=== PATIENT | male | born 1955 | race Caucasian/White ===

== ENCOUNTER 2017-03-08 05:38 | Outpatient (CLI) | payer BC, OTHER ==
[~2017-03-08] VITALS: Ht 177.8 cm; Wt 93.0 kg
[2017-03-08] MEDS ORDERED: MULT-517 PO (11:36)
[2017-03-08] MEDS ORDERED: CINN500C2 PO (11:36)
== END 2017-03-08 11:38 ==
LOC: PREOP 05:38
PROVIDERS: ATTEND Surgery
DX: Z01.818 Encounter for other preprocedural examination (principal); K40.91 Unilateral inguinal hernia, without obstruction or gangrene, recurrent

== ENCOUNTER 2017-03-14 05:57 | Day surgery (SDC) | payer BC, OTHER ==
[~2017-03-14] VITALS: Ht 177.8 cm; Wt 93.0 kg
[2017-03-14] VITALS (7 sets, daily range): BP systolic 118–144; BP diastolic 68–91
[~2017-03-14 05:57] MED LIST: CINN500C2 PO; MULT-517 PO
[2017-03-14 06:29] LABS: MEAN PLATELET VOLUME 10.3 FL (7.4-10.4); RED BLOOD COUNT 4.98 10^6/uL (4.35-5.85); RED CELL DISTRIBUTION WIDTH 12.2 % (10.0-14.5); WHITE BLOOD COUNT 5.2 10^3/uL (4.3-11.0)
[2017-03-14] MEDS ORDERED: ceFAZolin 2 GM/50 ML NS 50 ML ONE (06:30)
[2017-03-14] MEDS: LACTATED RINGERS 1,000 ML IV PRN ×3 (06:30→10:48)
[2017-03-14] MEDS ORDERED: MIDAZOLAM 2 MG/2 ML (VERSED) VIAL ONE (06:36)
[2017-03-14] MEDS ORDERED: LACTATED RINGERS 1,000 ML IV ONE ×3 (06:36→10:41)
[2017-03-14] MEDS ORDERED: LIDOCAINE PF 2% 5 ML (XYLOCAINE) VIAL ONE (06:36)
[2017-03-14] MEDS ORDERED: LIDOCAINE JELLY 2% (XYLOCAINE) 5 ML TUBE ONE (06:36)
[2017-03-14] MEDS ORDERED: proPOfol 200 MG/20 ML (DIPRIVAN) VIAL IV ONE (06:36)
[2017-03-14] MEDS ORDERED: ROCURONIUM 50 MG/5 ML (ZEMURON) VIAL IV ONE ×2 (06:36→09:42)
[2017-03-14] MEDS ORDERED: ONDANSETRON 4 MG/2 ML (SDV) Z0FRAN ONE ×3 (06:36→10:49)
[2017-03-14] MEDS ORDERED: fentaNYL INJECTION 100 MCG/2 ML AMP ONE (06:37)
[2017-03-14] MEDS ORDERED: ceFAZolin 2 GM/NS 50 ML IV ONE (06:45)
[2017-03-14] MEDS ORDERED: BUP/EPI 0.25% 1:200,000 (MARCAINE) 10 ML VIAL IJ ONE (07:25)
--- NOTE | 2017-03-14 07:46 | Progress Note-Pre Operative ---
Pre-Operative Progress Note H&P Reviewed The H&P was reviewed, patient examined and no changes noted. Date Seen by Provider: Mar 14, 2017 Time Seen by Provider: 07:41 Date H&P Reviewed: Mar 14, 2017 Time H&P Reviewed: 07:40 Pre-Operative Diagnosis: Recurrent right inguinal hernia MIKE MADRID MD Mar 14, 2017 7:46 am
[2017-03-14] MEDS ORDERED: SEVOFLURANE (ULTANE) 15 ML INHAL SOLN ONE ×4 (08:27→09:53)
[2017-03-14] MEDS ORDERED: ATROPINE INJ 0.4 MG/ML SDV ONE (08:27)
[2017-03-14] MEDS ORDERED: GLYCOPYRROLATE 0.2 MG/ML (ROBINUL) 2 ML VIAL ONE ×2 (09:44→09:48)
[2017-03-14] MEDS ORDERED: NEOSTIGMINE (BLOXIVERZ ) 1 MG/1ML 10 ML VIAL ONE ×2 (09:44→09:48)
--- NOTE | 2017-03-14 09:59 | Operative Report ---
Operative Report Date of Procedure/Surgery Mar 14, 2017 Surgeon (s) MIKE MADRID MD [employer] Operator (s): not applicable Post-Operative Diagnosis same Procedure Performed robotic assisted repair with mesh Description of Procedure Anesthesia Type: General Estimated blood loss (mL): minimal Specimen(s) collected/removed none Description of the Procedure Indication for procedure: This gentleman presented with a symptomatic, recurrent right inguinal hernia. He had undergone open repair with the mesh plug a few years ago. He was offered minimally invasive repair with robotic assistance and mesh reinforcement. Informed consent was obtained after reviewing the operative details and complications of hematoma, infection of the mesh and the risk of further recurrence. Description of the procedure: He was placed supine on the operative table and general anesthesia induced using an endotracheal tube. A gram of Ancef was administered intravenously as prophylaxis against wound infection. Sequential compression devices were placed around his legs, to minimize the risk of venous thrombosis. A Taylor catheter was placed to decompress the bladder during surgery. It was removed at the end of the operation. Abdomen was prepared and draped in the usual sterile manner. Pneumoperitoneum was established using a Veress needle introduced over the supra-umbilical region after making a 2 cm incision. Intra-abdominal pressure was maintained at 15 mmHg. A 12 mm trocar was placed and anatomy visualized using the high definition, 3-dimensional laparoscope associated with Putney system. A medial recurrence was confirmed on the right side. There was no hernia on the contralateral side. Under direct view, I placed an 8 mm trocar over each side of the abdomen and the patient was placed in steep Trendelenburg position, to displace loops of bowel out of the pelvis. The robotic system was then docked in place. Peritoneum was incised laterally continuing across the median umbilical ligament , entering the pre-peritoneal space. Extraperitoneal fat was contained within the recurrent hernia and reduced. Bleeding during this process was controlled using bipolar artery and clips. The defect measured 2 cm in diameter and was approximated using a 2-0 V-LOC suture with the robotic assistance. A large polypropylene mesh measuring 10 x 16 cm, pre-made to fit into the preperitoneal space was used for reinforcement. It was secured to Lkaus's ligament and the lateral abdominal muscles with 2-0 Vicryl sutures using robotic assistance. Peritoneum was then reconstituted using the same suture material. Hemostasis was satisfactory and the operation concluded. The fascia over the supraumbilical incision was closed using #1 Vicryl. Skin incisions were closed using 4-0 Vicryl, in a subcuticular fashion. 0.25 percent Marcaine with epinephrine was infiltrated along the incisions, both preemptively and at the conclusion of the operation. He tolerated the procedure well, was extubated in the operating room and taken to the recovery room in a stable condition. Findings of the Procedure see the operative report Allergies and Home Medications Allergies Coded Allergies: No Known Drug Allergies (Unverified , 03/08/17) Home Medications Cinnamon Bark 500 Mg Capsule, 500 MG PO DAILY, (Reported) Multivitamin 1 Each Tablet, 1 EACH PO DAILY, (Reported) MIKE MADRID MD Mar 14, 2017 9:59 am
[2017-03-14] MEDS ORDERED: HYDR-3820 PO (10:00)
--- NOTE | 2017-03-14 10:00 | Discharge Inst-Simple/Standard ---
Discharge Inst-Standard Discharge Medications New, Converted or Re-Newed RX: RX on Chart Patient Instructions/Follow Up Plan of Care/Instructions/FU: Band-Aids off in 48 hours. Follow-up in a month. Activity as Tolerated: No Goal: no lifting over 20 pounds Discharge Diet: No Restrictions MIKE MADRID MD Mar 14, 2017 10:00 am
[2017-03-14] MEDS ORDERED: morphine INJ 10 MG/ML 1ML (SYR OR VIAL) IVP PRN (10:30)
[2017-03-14] MEDS ORDERED: MEPERIDINE (DEMEROL) INJ 50 MG/ML IVP PRN (10:30)
[2017-03-14] MEDS: ONDANSETRON 4 MG/2 ML (SDV) Z0FRAN IVP PRN ×2 (10:45→10:55)
[2017-03-14] MEDS ORDERED: SCOPOLAMINE 1.5 MG (TRANSDERM-SCOP) PATCH ONE (11:16)
[2017-03-14] MEDS ORDERED: PROMETHAZINE INJ 25 MG/ML (PHENERGAN) AMP ONE (11:21)
[2017-03-14] MEDS ORDERED: PROMETHAZINE INJ 25 MG/ML (PHENERGAN) AMP IVP PRN (11:30)
[2017-03-14] MEDS ORDERED: SCOPOLAMINE 1.5 MG (TRANSDERM-SCOP) PATCH TD ONE (11:45)
== END 2017-03-14 14:35 | disposition home or self-care (01) ==
LOC: SDC 05:57
PROVIDERS: ATTEND Surgery
DX: K40.91 Unilateral inguinal hernia, without obstruction or gangrene, recurrent (principal); Z11.2 Encounter for screening for other bacterial diseases
CPT/HCPCS: 36415; 85027; 87081